=== PATIENT | male | born 2005 | race African-American/Black ===

== ENCOUNTER 2023-04-19 07:31 | Emergency (ER) | payer MEDICAID ==
[~2023-04-19] VITALS: Ht 167.6 cm; Wt 64.2 kg
[~2023-04-19 07:31] MED LIST: ONDA4TAB6 PO
[2023-04-19 07:45] VITALS: BP 129/80
--- NOTE | 2023-04-19 07:50 | NUR ---
PER DR HAHN NO LABS AT THIS TIME
[2023-04-19] MEDS ORDERED: mag hydrox/Alum hydrox/simeth 30ml oral suspension PO ONE (07:55)
[2023-04-19] MEDS ORDERED: sucralfate 1 gm tablet PO ONE (07:55)
[2023-04-19] MEDS ORDERED: LIDOcaine Viscous 15ml cup MM ONE (07:55)
[2023-04-19] MEDS ORDERED: SUCR1TAB34 PO (09:14)
== END 2023-04-19 09:53 | disposition home or self-care (01) ==
LOC: ER 07:31
DX: R10.13 Epigastric pain (principal); R11.0 Nausea; R42 Dizziness and giddiness; Z79.899 Other long term (current) drug therapy
CPT/HCPCS: 76700; 99284